=== PATIENT | female | born 1955 | race Caucasian/White ===

== ENCOUNTER → 2024-06-29 12:50 | Outpatient (REF) | payer MEDICARE, SELFPAY | LOC: HWWDC 12:50 | PROVIDERS: ATTENDING PHYSICIAN Family Medicine | DX: Z12.31 Encounter for screening mammogram for malignant neoplasm of breast (principal) | CPT/HCPCS: 77063; 77067 ==

== ENCOUNTER → 2025-08-25 13:38 | Outpatient (REF) | payer MEDICARE, SELFPAY | LOC: HWWDC 13:38 | PROVIDERS: ATTENDING PHYSICIAN Physician Assistant Medical | DX: Z12.31 Encounter for screening mammogram for malignant neoplasm of breast (principal); M81.0 Age-related osteoporosis without current pathological fracture | CPT/HCPCS: 77063; 77067; 77080 ==

== ENCOUNTER → 2025-08-28 13:41 | Outpatient (REF) | payer MEDICARE, SELFPAY | LOC: RAD 13:41 | PROVIDERS: ATTENDING PHYSICIAN Physician Assistant Medical | DX: M25.652 Stiffness of left hip, not elsewhere classified (principal) | CPT/HCPCS: 93971 ==

== ENCOUNTER → 2025-09-05 11:47 | Outpatient (REF) | payer MEDICARE, SELFPAY | LOC: HWRAD 11:47 | PROVIDERS: ATTENDING PHYSICIAN Physician Assistant Medical | DX: M25.562 Pain in left knee (principal) | CPT/HCPCS: 73564 ==